=== PATIENT | female | born 2000 | race Two or more races ===

== ENCOUNTER 2024-11-15 23:12 | Emergency (ER) | payer MEDICAID, OTHER ==
[~2024-11-15] VITALS: Ht 165.1 cm; Wt 72.0 kg
[2024-11-15] MEDS: ONDANSETRON ODT 4 MG TAB PO ONE (23:30)
[2024-11-15] MEDS: SODIUM CHLORIDE 0.9% 1,000 ML IV ONE (23:30)
--- NOTE | 2024-11-15 23:44 | ED.PDOC ---
History of Present Illness HPI Comments 23 y/o F is BIBA for possible overdose. Per EMS report, patient was at a bar when bystanders called, endorsing on the patient becoming altered and unresponsive. Patient was found on scene with purple and blue skin discoloration, pinpoint pupils, and agonally breathing. She was given 4mg Narcan IN with positive response. Patient denies any opiate use and reports only drinking 'White Claws and High Noon' alcohol beverages. At time of assessment, patient reports feeling nauseous, currently, and denies any further associated symptoms. Time Seen by MD: 23:20 Reviewed Notes: Nurses Notes, Bracer Notes, Medications, Allergies Allergies: Coded Allergies: NO KNOWN ALLERGIES (Unverified , 11/15/24) Information Source: Patient, Emergency Med Personnel Mode of Arrival: Ambulatory Severity: Moderate Timing: Hours Duration: Minutes Prehospital treatment: 12 Lead EKG, Accucheck, Visualizer, Other (Narcan 4mg IN ) Past Medical History PAST MEDICAL HISTORY: Denies Surgical History: Denies all surgeries [employer] History: Denies all [employer] Hx Family History Family History: Unknown Social History Smoker: Non-Smoker Alcohol: Heavy Drugs: Denies Drug Use Lives In: Home Constitutional: denies: chills, diaphoresis, fatigue, fever, malaise, sweats, weakness, others EENTM: denies: blurred vision, double vision, ear bleeding, ear discharge, ear drainage, ear pain, ear ringing, eye pain, eye redness, hearing loss, mouth pain, mouth swelling, nasal discharge, nose bleeding, nose congestion, nose pain, photophobia, tearing, throat pain, throat swelling, voice changes, others Respiratory: denies: cough, hemoptysis, orthopnea, SOB at rest, shortness of breath, SOB with excertion, stridor, wheezing, others Cardiovascular: denies: chest pain, dizzy spells, diaphoresis, Dyspnea on exertion, edema, irregular heart beat, left arm pain, lightheadedness, pa lpitations, PND, syncope, others Gastrointestinal: reports: nausea, vomiting; denies: abdomen distended, abdominal pain, blood streaked bowels, constipated, diarrhea, dysphagia, difficulty swallowing, hematemesis, melena, poor appetite, poor fluid intake, rectal bleeding, rectal pain, others Genitourinary: denies: abnormal vagina bleeding, burning, dyspareunia, dysuria, flank pain, frequency, hematuria, incontinence, pain, , vagina discharge, urgency, others Neurological: denies: dizziness, fainting, headache, left sided numbness, left sided weakness, numbness, paresthesia, pre-existing deficit, right sided numbness, right sided weakness, seizure, speech problems, tingling, tremors, weakness, others Musculoskeletal: denies: back pain, gout, joint pain, joint swelling, muscle pain, muscle stiffness, neck pain, others Integumetry: denies: bruises, change in color, change in hair/nails, dryness, laceration, lesions, lumps, rash, wounds, others Allergic/Immunocompromised: denies: Difficulty Healing, Frequent Infections, Hives, Itching, others Hematologic/Lymphatic: denies: anemia, blood clots, easy bleeding, easy bruising, swollen glands, others Endocrine: denies: excessive hunger, excessive sweating, excessive thirst, excessive urination, flushing, intolerance to cold, intolerance to heat, un explained weight gain, unexplained weight loss, others Psychiatric: reports: others (Altered due to possible drugging of drink at bar. Patient is intoxicated.); denies: anxiety, bipolar disorder, depression, hope less, panic disorder, schizophrenia, sleepless, suicidal All Other Systems: Reviewed and Negative (See HPI) Physical Exam General Appearance: Moderate Distress (Patient is a [id number] distress due to anxiety related to whatever drugs she may have consumed. Patient is intoxicated.), Normal HEENT: Pharynx Normal, TMs Normal Neck: Full Range of Motion, Non-Tender, Normal, Normal Inspection Respiratory: Chest Non-Tender, Lungs Clear, No Accessory Muscle Use, No Respiratory Distress, Normal Breath Sounds Cardiovascular: No Edema, No JVD, No Murmur, No Gallop, Normal Peripheral Pulses, Regular Rate/Rhythm Breast Exam: Deferred Gastrointestinal: No Organomegaly, Non Tender, No Pulsatile Mass, Normal Bowel Sounds, Soft Genitalia: Deferred Pelvic: Deferred Rectal: Deferred Extremities: No calf tenderness, Normal capillary refill, Normal inspection, Normal range of motion, Non-tender, No pedal edema Neurologic: Alert, No Motor Deficits, Normal Affect, Normal Mood, No Sensory Deficits Cerebellar Function: Normal Reflexes: Normal Skin: Dry, Normal Color, Warm Lymphatic: No Adenopathy Was a procedure done? Was a procedure done?: No Differential Dx Considerations may include: substance overdose, alcohol abuse, unknown drug poisoning among others X-Ray, Labs, Meds, VS Vital Signs Date Time Temp Pulse Resp B/P (MAP) Pulse Ox O2 Delivery O2 Flow Rate FiO2 11/16/24 00:16 104 15 93 Nasal Cannula* 2 28 11/16/24 00:13 97.8 104 15 133/68 (89) 93 97.8 11/15/24 23:12 97.9 112 14 125/86 (99) 99 97.9 Lab Test 11/15/24 23:28 Range/Units Plasma/Serum Blood Alcohol 128.2 H <10 mg/dL Current Medications Medications (Trade) Dose Ordered Sig/Sasha Route Start Time Stop Time Status Last Admin Ondansetron HCl (Zofran Po) 4 mg ONCE ONCE PO 11/15/24 23:30 11/15/24 23:31 DC 11/15/24 23:30 Sodium Chloride 1,000 ml @ 1,000 mls/hr Q1H ONCE IV 11/15/24 23:30 11/16/24 00:29 DC 11/15/24 23:30 Ondansetron HCl (Zofran) 4 mg ONCE ONCE IV 11/16/24 00:30 11/16/24 00:31 DC 11/16/24 00:33 Metoclopramide HCl (Reglan Injection) 10 mg ONCE ONCE IV 11/16/24 00:30 11/16/24 00:31 DC 11/16/24 00:33 X-Ray, Labs, Meds, VS Comment Urinalysis and drug screen was pending at time of this note. Patient's alcohol screen was 0.14. Patient care will be transferred to [facility] for review of urine and tox screen when returned. Once reviewed, he will inform patient of results. Time of 1ST Reevaluation: 01:19 Reevaluation 1ST: Improved Consultation: PCP Patient Education/Counseling: Diagnosis, Treatment, Need For Follow Up Family Education/Counseling: Diagnosis, Treatment, No Family Present Departure 1 Departure Time of Disposition: 01:19 Impression: Primary Impression: Alcohol intoxication Additional Impression: Drug overdose of undetermined intent Disposition: 30 STILL A PATIENT Condition: Fair Discharged With: Self, Friend Critical Care Note Critical Care Time?: No Stability Stability form required: No Heart Score Heart Score: Heart Score Response (Comments) Value History N/A 0 EKG N/A 0 Age N/A 0 Risk Factors N/A 0 Troponin N/A 0 Total 0 I personally scribed for SOLANGE BARRERA PAC (ipnexus) on 11/15/24 at 23:44. Electronically submitted by Mauro Church ([email or web address]). I personally scribed for SOLANGE BARRERA PAC (ipnexus) on 11/15/24 at 23:46. Elect ronically submitted by Mauro Church ([email or web address]). SOLANGE BARRERA PAC Nov 15, 2024 23:44
[2024-11-16 00:13] VITALS: TEMP 97.8
[2024-11-16 00:16] VITALS: PULSE 104; RESP 15; O2SAT 93
[2024-11-16] MEDS: METOCLOPRAMIDE HCL 5MG/ml INJ 2ml VIAL IV ONE (00:33)
[2024-11-16] MEDS: ONDANSETRON HCL 4 MG/2 ML VIAL IV ONE (00:33)
[2024-11-16 01:56] LABS: Urine Bacteria None Seen /hpf (None Seen)
[2024-11-16 01:59] LABS: Urine Blood Negative /uL (Negative); Urine Clarity Clear (Clear); Urine Color Light-Yellow (Yellow); Urine Hyaline Cast FEW /lpf (0 - 2); Urine Protein, UAD TRACE (Negative); Urine Specific Gravity 1.014 (1.001-1.035); Urine Squamous Epithelial Cell FEW /hpf (<5); Urine Urobilinogen Normal (Negative); Urine WBC 3 /HPF (0-5); Urine pH 6.5 (5.0-9.0)
[2024-11-16 02:12] LABS: Amphetamine Screen, Urine Neg (NEGATIVE); Barbiturate Scree,Urine Neg (NEGATIVE); Benzodiazephine Screen, Urine Neg (NEGATIVE); Cannabinoid Screen, Urine Neg (NEGATIVE); Cocaine Screen, Urine Neg (NEGATIVE); Opiate Scree,Urine Neg (NEGATIVE); Phencyclidine Screen, Urine Neg (NEGATIVE)
[2024-11-16 04:00] VITALS: BP 112/70; PULSE 100; RESP 12; O2SAT 100
== END 2024-11-16 04:07 | disposition home or self-care (01) ==
LOC: EDBD 23:12 → ER 23:12
DX: F10.129 Alcohol abuse with intoxication, unspecified (principal); T65.91XA Toxic effect of unspecified substance, accidental (unintentional), initial encounter; Z79.899 Other long term (current) drug therapy; Y90.9 Presence of alcohol in blood, level not specified; Y92.89 Other specified places as the place of occurrence of the external cause
CPT/HCPCS: 36415; 80307; 80320; 81001; 96361; 96374; 96375; 99284; J2405; J2765; J7030; Q0162